=== PATIENT | male | born 2000 | race Two or more races ===

== ENCOUNTER 2019-05-20 10:48 | Emergency (ER) | payer OTHER ==
[~2019-05-20] VITALS: Ht 167.6 cm; Wt 81.6 kg
[2019-05-20 10:53] VITALS: BP 132/65
--- NOTE | 2019-05-20 12:25 | NUR ---
Patient discharged in police custody in stable condition. Written and verbal after care instructions given. Patient verbalizes understanding of instruction.
== END 2019-05-20 12:24 ==
LOC: ER 10:51
DX: S63.91XA Sprain of unspecified part of right wrist and hand, initial encounter (principal); S63.694A Other sprain of right ring finger, initial encounter; F10.10 Alcohol abuse, uncomplicated; F17.200 Nicotine dependence, unspecified, uncomplicated; Y90.9 Presence of alcohol in blood, level not specified; Z60.2 Problems related to living alone; Z02.89 Encounter for other administrative examinations; Y04.8XXA Assault by other bodily force, initial encounter; Y93.89 Activity, other specified; Y92.89 Other specified places as the place of occurrence of the external cause; Y99.8 Other external cause status
CPT/HCPCS: 73140-TC

== ENCOUNTER 2020-01-07 08:22 | Emergency (ER) | payer OTHER ==
[~2020-01-07] VITALS: Ht 165.1 cm; Wt 77.1 kg
--- NOTE | 2020-01-07 08:40 | NUR ---
AT BEDSIDE FOR EVAL.
--- NOTE | 2020-01-07 09:05 | NUR ---
PT. VERBALIZED UNDERSTANDING OF AFTERCARE INSTRUCTIONS.Patient discharged to custody of [employer] in stable condition. Written and verbal after care instructions given. Patient verbalizes understanding of instruction.
[2020-01-07 09:06] VITALS: BP 138/91
== END 2020-01-07 09:06 ==
LOC: ER 08:27
DX: J06.9 Acute upper respiratory infection, unspecified (principal); Z60.2 Problems related to living alone; Z02.89 Encounter for other administrative examinations